=== PATIENT | male | born 1995 | race American Indian/Alaskan Native ===

== ENCOUNTER 2019-02-15 00:43 | Emergency (ER) | payer MEDICAID ==
[2019-02-15 00:59] VITALS: RESP 18
--- NOTE | 2019-02-15 01:38 | ED PDOC ---
HPI: Psych/Substance Abuse Time Seen by Provider: 02/15/19 00:59 Chief Complaint (Nursing): Psychiatric Evaluation Chief Complaint (Provider): Psychiatric Evaluation History Per: Patient History/Exam Limitations: no limitations Additional Complaint(s): 23 years old male with history of anxiety and depression presents to ER for crisis evaluation for he has been feeling stressed out. Patient reports suicidal and homicidal ideation without an actual plan. He states he lives with friends but having problems with the people he lives with. Patient denies auditory hallucinations. PMD: None provided Past Medical History Reviewed: Historical Data, Nursing Documentation, Vital Signs Vital Signs: Last Vital Signs Temp 98.5 F 02/15/19 00:57 Pulse 86 02/15/19 00:57 Resp 18 02/15/19 00:57 BP 131/79 02/15/19 00:57 Pulse Ox 97 02/15/19 00:57 Primary Care Provider: FAMILY PROVIDER,NO - Medical History PMH: Anxiety, Depression - Surgical History Surgical History: No Surg Hx - Family History Family History: States: Unknown Family Hx - Social History Current smoker - smoking cessation education provided: No Alcohol: None Drugs: Cannabis (Marijuana) - Allergies Allergies/Adverse Reactions: Allergies Allergy/AdvReac Type Severity Reaction Status Date / Time No Known Allergies Allergy Verified 02/15/19 00:59 Review of Systems ROS Statement: Except As Marked, All Systems Reviewed And Found Negative Psych: Positive for: Suicidal ideation (and homicial). Negative for: Other (Auditory hallucinations) Physical Exam - Reviewed Nursing Documentation Reviewed: Yes Vital Signs Reviewed: Yes - Physical Exam Appears: Positive for: Well, No Acute Distress Head Exam: Positive for: ATRAUMATIC, NORMOCEPHALIC Skin: Positive for: Normal Color, Warm, Dry Eye Exam: Positive for: Normal appearance, EOMI, PERRL ENT: Positive for: Normal ENT Inspection Neck: Positive for: Normal, Painless ROM, Supple Cardiovascular/Chest: Positive for: Regular Rate, Rhythm. Negative for: Murmur Respiratory: Positive for: Normal Breath Sounds. Negative for: Respiratory Distress Gastrointestinal/Abdominal: Positive for: Normal Exam, Soft. Negative for: Tenderness Back: Positive for: Normal Inspection. Negative for: L CVA Tenderness, R CVA Tenderness Extremity: Positive for: Normal ROM. Negative for: Pedal Edema, Deformity Neurological/Psych: Positive for: Awake, Alert, Oriented (x3), Mood/Affect (Flat affect) - ECG O2 Sat by Pulse Oximetry: 97 (RA) Pulse Ox Interpretation: Normal Medical Decision Making Medical Decision Making: Time: 107 Initial impression: 23 years old male presents with suicidal and homicidal ideation Initial plan: --1:1 Observation --Crisis evaluation 245 Patient evaluated by crisis, stable for discharge. Diagnosis: Adjustment disorder Scribe Attestation: Documented by Adia Barajas, acting as a scribe for Ariel Rivas MD. Provider Scribe Attestation: All medical record entries made by the Scribe were at my direction and personally dictated by me. I have reviewed the chart and agree that the record accurately reflects my personal performance of the history, physical exam, medical decision making, and the department course for this patient. I have also personally directed, reviewed, and agree with the discharge instructions and disposition. Disposition - Clinical Impression Clinical Impression: Adjustment disorder - Patient ED Disposition Is Patient to be Admitted: No - Disposition Disposition: Routine/Home Disposition Time: 02:46 Condition: STABLE Forms: [employer] (Estonian)
[2019-02-15 06:43] VITALS: BP 122/76; PULSE 81; TEMP 98.1; O2SAT 99
== END 2019-02-15 06:10 | disposition home or self-care (01) ==
LOC: H.ER 00:43
DX: F43.22 Adjustment disorder with anxiety (principal); F32.9 Major depressive disorder, single episode, unspecified